=== PATIENT | female | born 1940 | race Caucasian/White ===

== ENCOUNTER 2018-05-09 09:08 | Day surgery (SDC) | payer MEDICARE, OTHER, SELFPAY ==
[2018-05-09 10:09] VITALS: BMI 33.1
[2018-05-09] MEDS: PROPARACAINE 0.5% OPHTH SOL 2 DROPS EYE-OP (10:20)
[2018-05-09] MEDS: CATARACT EYE COMPOUND (10 DROPS/SYRINGE) 3 DROPS EYE-OP (10:21)
[2018-05-09 10:22] VITALS: BP 176/101; PULSE 79; RESP 15; TEMP 36.4; O2SAT 97
--- NOTE | 2018-05-09 10:37 | SUR.PREOP ---
medicated with both preop eye drops - first set @ 1020, 1025 and finally 1032; tolerated well
--- NOTE | 2018-05-09 10:53 | PM.PREOP ---
Pre-operative Note Interval Note Changes: No
--- NOTE | 2018-05-09 10:54 | P.OP.PRE_ITS ---
Pre-operative Note Interval Note Changes: No
[2018-05-09] MEDS: CHONDROIDTIN/SOD HYALURONATE 1.05 ML SYRINGE INTRAOCULA (11:22)
[2018-05-09] MEDS: HYALURONATE SODIUM 10 MG/ML SYRINGE INJ (11:22)
[2018-05-09] MEDS: CARBACHOL 1.5 ML VIAL INJ (11:22)
[2018-05-09] MEDS: BALANCED SALT IRRIG SOLN NO.2 15 ML IRRIG.SOLN IRR (11:22)
[2018-05-09] MEDS: LIDOCAINE 1% W/EPI INJ 20 ML INJ (11:25)
[2018-05-09] MEDS: MOXIFLOXACIN OPHTH DROPS 3 ML BOTTLE 2 DROPS INJ (11:25)
[2018-05-09] MEDS: TRYPAN BLUE 0.5 ML SYRINGE INJ (11:26)
[2018-05-09] MEDS: PHENYLEPHRINE/LIDOCAINE 3ML VIAL (OR) EYE-OP (11:26)
[2018-05-09] MEDS: LIDOCAINE 2% 4 ML, BUPIVACAINE 0.5% (PF) 4 ML, HYALURONIDASE 150 UNIT INJ (11:27)
[2018-05-09] MEDS: TRIAMCINOLONE 50 MG/5 ML VIAL INJ (11:27)
[2018-05-09 11:45] VITALS: BP 119/70; PULSE 65; RESP 16; TEMP 36.6; O2SAT 96
--- NOTE | 2018-05-09 11:49 | PM.OP.1 ---
Operative Date/Time/Diagnoses Date of procedure: 05/09/18 Time of procedure: 09:51 Procedure & Clinicians Procedure:
--- NOTE | 2018-05-09 12:03 | PM.OP.1 ---
Operative Date/Time/Diagnoses Date of procedure: 05/09/18 Time of procedure: 11:00 Procedure & Clinicians Procedure: Date of service:April Preoperative diagnoses: 1. Nuclear sclerotic and cortical cataract Cataract 2. Multiple allergies Postoperative diagnoses: 1. Cataract status post cataract surgery with phacoemulsification and posterior chamber intraocular lens. Procedure: Phacoemulsification with posterior chamber intraocular lens implant Surgeon: Catherine Gaspar MD Complications: None Specimen: None Implant: +20.0 Blood loss: None Anesthesia: Retrobulbar with monitored standby Anesthesiologist: Nathan Dean M.D. Description of procedure: Patient is a 69 year old female with decreased vision due to cataract which is affecting activities of daily living. She wants surgery to improve vision. She has taken to the operating room and given IV sedation. A retrobulbar block insert consisting of 6 cc of 2% xylocaine without epinephrine mixed half and half with 0.5% Marcaine with 1 cc of hyaluronidase added is placed between the medial and lateral 1/3 of the inferior orbital rim. Lid akinesia is obtain with 1% xylocaine with epinephrine infiltrated along the lid margin. The eye is manually massaged for 30 sec, prepped using Betadine solution, and draped in the usual sterile fashion. Temporal approach was made, a 1 mm side-port incision was made at the [] meridian. Phenylephrine 1.5% mixed with 1% xylocaine 0.2 cc was placed into the anterior chamber. Viscoat followed by Doris was then placed. A 2.6 mm clear incision with a 2.6 mm blade was placed at the 3 oclock meridian. A 360 degree capsulorrhexis style capsulotomy was then performed with a cystitome needle on a Healon. Hydrodelineation and hydrodissection were performed. The phacoemulsification unit is introduced, and sculpting notice used to groove the central lens. It is then removed in chopping mode. Epi nucleus is removed with epinuclear mode and irrigation aspiration was used to remove the peripheral cortex. The posterior capsule is polished. The intraocular lens is selected, inspected, power confirmed, and placed in the posterior chamber. The pupil was constricted. The wound was stromally hydrated and tested for leaks, there was none and was left sutureless. Vigamox 0.1 cc was placed into the anterior chamber. Kenalog 0.2 cc was placed in the superior subconjunctival space. A drop of antibiotic and was placed and the eye was patched and shielded. The patient was stable and returned to the recovery room in excellent condition. Dictated by: Catherine Gaspar MD Copy to: [facility]
== END 2018-05-09 12:07 | disposition home or self-care (01) ==
LOC: OR 09:14
PROVIDERS: PCP Family Medicine; Visit Provider Ophthalmology
DX: H25.12 Age-related nuclear cataract, left eye (principal); I10 Essential (primary) hypertension
CPT/HCPCS: J2250; J2704; J3010; J3301; J3470

== ENCOUNTER 2018-05-23 07:55 | Day surgery (SDC) | payer MEDICARE, BC, OTHER, SELFPAY ==
--- NOTE | 2018-05-19 14:57 | PM.PREOP ---
Pre-operative Note Interval Note Pre-op Check: Yes History & Physical Reviewed by Physician Changes: No
--- NOTE | 2018-05-19 14:58 | PM.OP.1 ---
Operative Date/Time/Diagnoses Date of procedure: 05/23/18 Time of procedure: 11:00 Procedure & Clinicians Procedure: Date of service: May 23, 2018 Preoperative diagnoses: 1. Right nuclear sclerotic and cortical Cataract. 2. Multiple allergies. Postoperative diagnoses: 1. Cataract removal with phacoemulsification and posterior chamber intraocular lens implant. Procedure: Phacoemulsification with posterior chamber intraocular lens implant Surgeon: Catherine Gaspar MD Complications: None Specimen: None Implant: +19.5 ZCBOO. Blood loss: None Anesthesia: Retrobulbar with monitored standby Anesthesiologist: Daisy Jones Description of procedure: Patient is a female year old with decreased vision due to cataract which is affecting activities of daily living. She wants surgery to improve vision. She was taken to the operating room and given IV sedation. A retrobulbar block insert consisting of 6 cc of 2% xylocaine without epinephrine mixed half and half with 0.5% Marcaine with 1 cc of hyaluronidase added is placed between the medial and lateral 1/3 of the inferior orbital rim. Lid akinesia is obtain with 1% xylocaine with epinephrine infiltrated along the lid margin. The eye is manually massaged for 30 sec, prepped using Betadine solution, and draped in the usual sterile fashion. Temporal approach was made, a 1 mm side-port incision was made at the 7:30 position. Phenylephrine 1.5% mixed with 1% xylocaine 0.2 cc was placed into the anterior chamber. Viscoat followed by Doris was then placed. A 2.6 mm clear incision with a 2.6 mm blade was placed at the 170 degree meridian. A 360 degree capsulorrhexis style capsulotomy was then performed with a cystitome needle on a Healon. Hydrodelineation and hydrodissection were performed. The phacoemulsification unit is introduced, and sculpting notice used to groove the central lens. It is then removed in chopping mode. Epi nucleus is removed with epinuclear mode and irrigation aspiration was used to remove the peripheral cortex. The posterior capsule is polished. The intraocular lens is selected, inspected, power confirmed, and placed in the posterior chamber. The pupil was constricted. The wound was stromallyy hydrated and tested for leaks, there was none and it was left sutureless. Vigamox 0.1 cc was placed into the anterior chamber. Kenalog 0.2 cc was placed in the superior subconjunctival space. A drop of antibiotic and was placed and the eye was patched and shielded. The patient was stable and returned to the recovery room in excellent condition. Dictated by: Catherine Gaspar MD Copy to: [facility] Same procedure as scheduled: Yes
[2018-05-23] MEDS: PROPARACAINE 0.5% OPHTH SOL 2 DROPS EYE-OP (10:15)
[2018-05-23] MEDS: CATARACT EYE COMPOUND (10 DROPS/SYRINGE) 3 DROPS EYE-OP (10:16)
[2018-05-23 10:18] VITALS: BP 173/103; PULSE 73; RESP 16; TEMP 36.7; O2SAT 97; BMI 33.1
[2018-05-23] MEDS: CHONDROIDTIN/SOD HYALURONATE 1.05 ML SYRINGE INTRAOCULA (11:06)
[2018-05-23] MEDS: CARBACHOL 1.5 ML VIAL INJ (11:06)
[2018-05-23] MEDS: BALANCED SALT IRRIG SOLN NO.2 15 ML IRRIG.SOLN IRR (11:06)
[2018-05-23] MEDS: HYALURONATE SODIUM 10 MG/ML SYRINGE INJ (11:07)
[2018-05-23] MEDS: LIDOCAINE 1% W/EPI INJ 20 ML INJ (11:07)
[2018-05-23] MEDS: MOXIFLOXACIN OPHTH DROPS 3 ML BOTTLE 2 DROPS INJ (11:08)
[2018-05-23] MEDS: OFLOXACIN 0.3% OPHTH 5 ML 2 DROPS EYE-RIGHT (11:10)
[2018-05-23] MEDS: PHENYLEPHRINE/LIDOCAINE 3ML VIAL (OR) EYE-OP (11:10)
[2018-05-23] MEDS: BALANCED SALT IRRIG SOLN NO.2 500 ML, EPINEPHrine 1 MG IRR (11:12)
[2018-05-23] MEDS: LIDOCAINE 2% 4 ML, BUPIVACAINE 0.5% (PF) 4 ML, HYALURONIDASE 150 UNIT INJ (11:13)
[2018-05-23] MEDS: ERYTHROMYCIN OPHTH 1 GM OINT 1 APPLIC EYE-RIGHT (11:15)
[2018-05-23] MEDS: TRIAMCINOLONE 50 MG/5 ML VIAL INJ (11:26)
[2018-05-23 11:37] VITALS: BP 168/88; PULSE 68; RESP 16; TEMP 36.1; O2SAT 98
== END 2018-05-23 11:52 | disposition home or self-care (01) ==
PROVIDERS: PCP Family Medicine; Visit Provider Ophthalmology
DX: H25.11 Age-related nuclear cataract, right eye (principal); I10 Essential (primary) hypertension
CPT/HCPCS: J0171; J2704; J3301; J3470